=== PATIENT | female | born 1960 | race Caucasian/White ===

== ENCOUNTER 2019-05-04 23:06 | Inpatient (IN) | payer OTHER ==
[~2019-05-04] VITALS: Ht 154.9 cm; Wt 52.7 kg
[~2019-05-04 23:06] MED LIST: FLA500 PO; IMO2 PO; KEFLEX250 MG; LAC PO; LEVOFLOXACIN500 M1 PO; METFORMIN ER500 M1; MOTRIN800 MG PO; NOR5 PO; OMEPRAZOLE20 M2 PO; PROMETHAZINE12.5 M6 PO; ZES20 PO; ZOC10 PO
[2019-05-04 23:13] VITALS: Ht 154.9 cm; Wt 52.7 kg
--- NOTE | 2019-05-04 23:30 | NUR ---
PT REPORTS HBP AND CHILLS X1 DAY. PT'S DAUGHTER STS THAT SHE TOOK HER BP AT HOME X1 HR AND IT WAS 222/111. PT REPORTS THAT SHE LOST HER BP MED, AMLODIPINE, SUNDAY, AND HAS NOT TAKEN MEDICATION SINCE. PT REPORTS FEELING "LIKE HER HEART IS SKIPPING A BEAT." PT REPORTS NO OTHER COMPLAINTS. PT DENIES BLURRED VISION, RAWLS, DIZZINESS/SYNCOPE, SOB. PT PLACED ON DECAL DECORATOR AND PULSE OF. RESPS E/U, NAD NOTED AT THIS TIME.
--- NOTE | 2019-05-05 00:30 | NUR ---
DR CUNNINGHAM AT BEDSIDE FOR MSE
--- NOTE | 2019-05-05 00:38 | NUR ---
PT AWAKE AND ALERT, LAYING IN POSITION OF COMFORT. BED IN LOW AND LOCKED POSITION, 2 BED RAILS UP. PT SPEAKING IN FULL SENTENCES, ANSWERING QUESTIONS APPROPRIATELY. RESPS E/U, NAD NOTED AT THIS TIME. DAUGHTER AT BEDSIDE. CALL LIGHT W/IN REACH. WILL CONTINUE TO MONITOR.
--- NOTE | 2019-05-05 00:49 | NUR ---
MEDICATION ADMINISTERED PER MD ORDER. NITRO 1/3 GIVEN. WILL REASSESS Q5MINS
--- NOTE | 2019-05-05 00:56 | NUR ---
PT AAO4, RESP E/U, STS FEELS MORE CALM AT THIS TIME. REPORTS WAS FEELING ANXIOUS PRIOR.
--- NOTE | 2019-05-05 01:02 | NUR ---
MD MADE AWARE OF PT'S BP. NITRO HELD AT THIS TIME.
--- NOTE | 2019-05-05 01:11 | NUR ---
PT TO RESTROOM TO PROVIDE URINE
[2019-05-05 01:12] LABS: BASOPHIL % 0.5 % (0-2); PLATELET COUNT 226 x10^3mcL (130-400); RED CELL DISTRIBUTION WIDTH 12.7 % (11.5-14.5)
--- NOTE | 2019-05-05 01:43 | NUR ---
PT AWAKE AND ALERT, LAYING IN POSITION OF COMFORT. PT C/O NO PAIN. PT SPEAKING IN FULL SENTENCES, ANSWERING QUESTIONS APPROPRIATELY. RESPS E/U, NAD NOTED AT THIS TIME. CALL LIGHT W/IN REACH. DAUGHTER AT BEDSIDE.
[2019-05-05 01:47] LABS: ALBUMIN 3.4 g/dL (3.4-5.0); CALCIUM 9.2 mg/dL (8.5-10.1); CARBON DIOXIDE 30.6 mmol/L (21-32); CREATININE SERUM 1.4 mg/dL (0.6-1.0); POTASSIUM SERUM 4.8 mmol/L (3.5-5.1)
[2019-05-05 01:50] LABS: BILIRUBIN TOTAL 0.2 mg/dL (0.20-1.00); TOTAL PROTEIN, SERUM 7.1 g/dL (6.4-8.2)
[2019-05-05 01:58] LABS: FREE T4 0.99 ng/dL (0.76-1.46)
--- NOTE | 2019-05-05 02:23 | NUR ---
PT A&O X4, LAYING IN POSITION OF COMFORT. IV PLACED, FLUID BOLUS STARTED. PT SPEAKING IN FULL SENTENCES, ANSWERING QUESTIONS APPROPRIATELY. RESPS E/U, NAD NOTED. DAUGHTER AT BEDSIDE. CALL LIGHT W/IN REACH
--- NOTE | 2019-05-05 02:36 | NUR ---
DOSE 2/3 NITRO ADMINISTERED FOR HBP, ORDERED BY DR CUNNINGHAM. WILL REASSESS IN 5MINS.
--- NOTE | 2019-05-05 02:42 | NUR ---
BP 208/118 5MINS AFTER NITRO ADMIN. NITRO 3/3 ADMINISTERED. WILL REASSESS IN 5MINS
--- NOTE | 2019-05-05 02:48 | NUR ---
BP 163/92 AFTER 3/3 NITRO ADMIN. MADE AWARE.
[2019-05-05 03:00] LABS: microscopic required? YES; urine erythrocyte 1+ (NEGATIVE)
--- NOTE | 2019-05-05 03:02 | NUR ---
IV INSULIN ADMINISTERED PER MD ORDER. ORDER DOUBLE-CHECKED AND CO-SIGNED BY GUSTAVO DENSON
[2019-05-05] MEDS ORDERED: NAPROSYN500 MG PO (03:13)
[2019-05-05] MEDS ORDERED: SIMVASTATIN20 M1 PO (03:13)
[2019-05-05] MEDS ORDERED: GLYBURIDE5 MG PO (03:13)
--- NOTE | 2019-05-05 03:14 | NUR ---
MED REC COMPLETED. PT ALSO TAKES UNK MED FOR THYROID.
[2019-05-05] MEDS ORDERED: NOR10 PO (03:15)
[2019-05-05 03:38] LABS: AMPHETAMINE QUAL UR NONE DETECTED (See below)
--- NOTE | 2019-05-05 04:07 | NUR ---
PT AWAKE AND ALERT. PT LAYING IN POSITION OF COMFORT. BS DOWN TO 203. VSS, RESPS E/U, NAD NOTED AT THIS TIME. AWAITING BED ASSIGNMENT. CALL LIGHT W/IN REACH, DAUGHTER AT BEDSIDE.
--- NOTE | 2019-05-05 04:31 | NUR ---
REPORT GIVEN TO BERNIE DENSON
--- NOTE | 2019-05-05 04:50 | NUR ---
RECEIVED PT FROM ED. PT AOX4. DENIES RAWLS/DIZZINESS. PLACED PT ON TELE #[id number], READING NSR, HR 74. DENIES CP/PRESSURE. IV TO RAC, INTACT AND PATENT. BED IN LOWEST POSITION. CALL LIGHT WITHIN REACH. WILL CONTINUE TO MONITOR.
--- NOTE | 2019-05-05 05:05 | NUR ---
DR. DARBY PAGED FOR ORDERS. AWAITING CALL BACK.
[2019-05-05 05:08] VITALS: BP 169/92
--- NOTE | 2019-05-05 05:42 | NUR ---
PAGED DR. DARBY FOR ADMIT ORDERS FOR SECOND TIME. WILL CONTINUE TO AWAIT CALL BACK.
--- NOTE | 2019-05-05 07:25 | NUR ---
RECEIVED PT'S REPORT FROM LEAVING NURSE. PT REST ON BED, NO COMPLAIN OF CP AT THIS TIME. PT BREATHING ON RA, EVEN, UNLABORED. NO DIET ORDER AT THIS TIME. WAITING FOR ORDERS. WILL CONTINUE TO MONITOR.
[2019-05-05 08:28] VITALS: BP 164/72
--- NOTE | 2019-05-05 10:21 | NUR ---
DR. GRIGGS SAW PT. MADE HIM AWARE PT'S MORNING SBP > 160 THIS MORNING.
[2019-05-05 12:15] VITALS: BP 204/89
--- NOTE | 2019-05-05 12:31 | NUR ---
DR. GRIGGS IS GOING TO DISCHARGE PT. PT'S BP 204/89, HR 76 BPM. PT'S DAUGHTER AT BEDSIDE. MADE DR. GRIGSG AWARE AND OBTAINED TELEPHONED ORDER:0.2MG CLONIDINE PO ONCE, AFTER ONE HOUR, AMLODIPINE 10MG. IF PT'S SBP < 180 AFTER MEDS GIVEN. PT IS OK TO DISCHARGE HOME.
[2019-05-05 13:43] VITALS: BP 155/88
--- NOTE | 2019-05-05 14:09 | NUR ---
AMLODIPIN 10MG GIVEN AFTER CLONIDINE. PT'S BP 155/88, HR 70. WILL DISCHARGE PT PER ORDER. PT'S DAUGHTER AT BEDSIDE. DISCHARGE INSTRUCTION AND PRESCRIPTION GIVEN. IV, ID BAND REMOVED.
== END 2019-05-05 14:33 | disposition home or self-care (01) | DRG 199 ==
LOC: ED 23:06 → DU 05-05 03:21
PROVIDERS: Emergency Medicine; ADMIT Internal Medicine Pulmonary Disease
DX: I16.0 Hypertensive urgency (principal); E11.22 Type 2 diabetes mellitus with diabetic chronic kidney disease; N18.3 Chronic kidney disease, stage 3 (moderate); I12.9 Hypertensive chronic kidney disease with stage 1 through stage 4 chronic kidney disease, or unspecified chronic kidney disease; E11.65 Type 2 diabetes mellitus with hyperglycemia; D63.8 Anemia in other chronic diseases classified elsewhere; I45.81 Long QT syndrome; Z68.22 Body mass index [BMI] 22.0-22.9, adult; Z91.14 Patient's other noncompliance with medication regimen; Z88.0 Allergy status to penicillin; Z83.3 Family history of diabetes mellitus
CPT/HCPCS: 82962; 83880; 84439; G0378; J1815; J7030; Q0092

== ENCOUNTER 2019-09-12 19:41 | Emergency (ER) | payer OTHER ==
[~2019-09-12] VITALS: Ht 154.9 cm; Wt 51.3 kg
[~2019-09-12 19:41] MED LIST changes: +GLYBURIDE5 MG PO; +NAPROSYN500 MG PO; +NOR10 PO; +SIMVASTATIN20 M1 PO
[2019-09-12 19:48] VITALS: BP 185/77; Ht 154.9 cm; Wt 51.3 kg
== END 2019-09-12 21:23 | disposition home or self-care (01) ==
LOC: ED 19:41
DX: S52.572A Other intraarticular fracture of lower end of left radius, initial encounter for closed fracture (principal); I10 Essential (primary) hypertension; E11.9 Type 2 diabetes mellitus without complications; E78.00 Pure hypercholesterolemia, unspecified; Z88.0 Allergy status to penicillin; W17.89XA Other fall from one level to another, initial encounter; Y93.89 Activity, other specified; Y92.89 Other specified places as the place of occurrence of the external cause; Y99.8 Other external cause status